=== PATIENT | female | born 1975 | race Caucasian/White ===

== ENCOUNTER 2016-05-31 18:25 | Emergency (ER) | payer MEDICARE, OTHER | END 2016-05-31 21:12 | disposition home or self-care (01) | LOC: ER 18:25 | DX: R10.11 Right upper quadrant pain (principal); F41.9 Anxiety disorder, unspecified; Z90.710 Acquired absence of both cervix and uterus; F17.210 Nicotine dependence, cigarettes, uncomplicated; Z79.899 Other long term (current) drug therapy; Z88.1 Allergy status to other antibiotic agents; Z88.2 Allergy status to sulfonamides | CPT/HCPCS: 36415; 96372; J1885 ==

== ENCOUNTER 2016-07-15 18:21 | Emergency (ER) | payer MEDICARE, OTHER | END 2016-07-15 21:00 | disposition home or self-care (01) | LOC: ER 18:21 | DX: S81.832A Puncture wound without foreign body, left lower leg, initial encounter (principal); F41.9 Anxiety disorder, unspecified; I10 Essential (primary) hypertension; F17.210 Nicotine dependence, cigarettes, uncomplicated; Z79.899 Other long term (current) drug therapy; Z88.1 Allergy status to other antibiotic agents; Z88.8 Allergy status to other drugs, medicaments and biological substances; Z90.710 Acquired absence of both cervix and uterus; W46.0XXA Contact with hypodermic needle, initial encounter | CPT/HCPCS: 36415 ==